=== PATIENT | male | born 1960 | race Caucasian/White ===

== ENCOUNTER 2021-09-07 08:00 | Outpatient (REF) | payer OTHER, SELFPAY ==
[2021-09-07 08:55] LABS: Anion Gap 14 (12-20); Carbon Dioxide 26 mmol/L (22-29); Chloride 94 mmol/L (96-108); Potassium 5.2 mmol/L (3.3-5.1); Sodium 129 mmol/L (135-145)
[2021-09-07 10:02] LABS: Carbamazepine Tegretol 10.4 mcg/mL (5.0-12.0)
== END 2021-09-07 08:01 | disposition home or self-care (01) ==
LOC: HO.LAB 08:00
PROVIDERS: Visit Provider Psychiatry & Neurology Neurology
DX: R56.9 Unspecified convulsions (principal); E87.1 Hypo-osmolality and hyponatremia
CPT/HCPCS: 36415; 80051; 80156

== ENCOUNTER 2022-08-19 09:09 | Outpatient (REF) | payer OTHER, SELFPAY ==
[2022-08-19 10:42] LABS: Anion Gap 17 (12-20); Carbon Dioxide 26 mmol/L (22-29); Chloride 93 mmol/L (96-108); Potassium 5.5 mmol/L (3.3-5.1); Sodium 130 mmol/L (135-145)
[2022-08-19 11:33] LABS: Carbamazepine Tegretol 11.9 mcg/mL (5.0-12.0)
== END 2022-08-19 09:10 | disposition home or self-care (01) ==
LOC: HO.LAB 09:09
PROVIDERS: Visit Provider Psychiatry & Neurology Neurology
DX: G40.909 Epilepsy, unspecified, not intractable, without status epilepticus (principal)
CPT/HCPCS: 36415; 80051; 80156

== ENCOUNTER 2025-05-24 08:45 | Outpatient (AMB) | payer OTHER, SELFPAY ==
--- NOTE | 2025-05-24 08:49 | A.OFFVIS_ITS ---
Intake Visit Reasons: 6 month sz Allergies No Known Allergies Allergy (Verified 05/24/25 09:00) Medication List - Last Reconciled 05/24/25 by Armida Armas CNP amlodipine 10 mg PO DAILY carbamazepine mg PO cyclobenzaprine 5 mg PO BEDTIME 30 days hydralazine 25 mg PO TID lisinopril 40 mg PO DAILY lorazepam 1 mg PO BEDTIME PRN tadalafil 20 mg PO DAILY PRN HPI Comments Details: He was doing okay. No seizures. No medication side effects. Neck pain and stiffness was okay. Using cyclobenzaprine infrequently as needed which helps. Sleep was okay. 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 Was having more neck pain and stiffness since fall during seizure in 2021, worse in morning. Tried Motrin and heat which helped some. No pain into shoulders or arms. No numbness or tingling. Mild occasional headaches. Last break through seizure on 02/23/2022 while washing face and thinking was stuck in bathroom with tongue biting. Had lot to drink (7 beers and some whiskey) the night before and did not get enough sleep. Was seen in ER and discharged. Had seizure on 02/23/2020, was in fog, admitted to [facility] for 4 days. Had black eye from hitting the night stand. Had not missed any medications, but was very tired and had not slept. Had seizure on 10/04/2012 after stress and not being able to sleep. It lasted 2 minutes and he had short postictal period. Had seizure 03/2006. Hx of seizure disorder, partial with secondary generalization. No aura. Hx of hyponatremia from CBZ. [facility] Medical History (Updated 05/24/25 @ 08:52 by Armida Armas CNP) Epilepsy Hypertension Seizures Review of Systems Const Denies chills, Denies daytime sleepiness, Denies difficulty sleeping, Denies fatigue, Denies fever(s), Denies frequent falls, Denies headache(s), Denies increased appetite, Denies poor appetite, Denies snoring, Denies weakness, Denies weight gain and Denies weight loss Eyes Denies loss of vision ENT Denies vertigo, Denies dizziness, Denies headache(s) and Reports neck pain Card Denies chest pain at rest, Denies chest pain with activity, Denies syncope, Denies leg edema, Denies palpitations, Denies dyspnea and Denies dyspnea on exertion Resp Denies cough, Denies dyspnea, Denies dyspnea on exertion and Denies snoring GI Denies abdominal pain, Denies constipation, Denies heartburn, Denies diarrhea and Denies nausea Denies urinary frequency, Denies urinary incontinence and Denies urinary urgency Musc Denies abnormal gait, Denies back pain, Denies myalgias, Denies arthralgias, Reports neck pain, Denies numbness and Denies tingling Neuro Denies abnormal gait, Denies vertigo, Denies dizziness, Denies syncope, Denies frequent falls, Denies headache(s), Denies lack of coordination, Denies loss of vision, Denies memory loss, Denies numbness, Denies Other visual disturbances, Denies restless legs, Denies seizure-like activity, Denies tingling, Denies paresthesias, Denies tremor(s) and Denies weakness Psych Denies anxiety, Denies depression, Denies auditory hallucinations, Denies memory loss and Denies visual hallucinations Endo Denies fatigue and Denies palpitations Physical Exam Const Other: General Appearance:? normal, in no acute distress. Heart:? S1, S2 normal, no murmurs. Lungs:? clear anteriorly and posteriorly. Musculoskeletal:? normal. Extremities:? no edema. Psych:? alert, oriented, cognitive function intact, cooperative with exam. Neuro Other: Abnormal Neurological Findings:?5-/5 L finger spread and thumb opposition Mental Status: alert and oriented X 3. Normal attention, orientation, memory, and affect. Cranial Nerves: Pupils are equal, round, and reactive to light. External ocular muscles are intact. Visual jara are full, no ptosis. Face is symmetrical, no facial weakness or droop. Facial sensations are normal. Tongue protrudes in midline. Palate elevates symmetrically. Shoulder shrugging is normal Motor Examination: As above, otherwise normal muscle tone, bulk and strength. No atrophy or fasciculations. No drift of the extended upper extremities. DTR 2+. Plantars are flexor. Sensory Exam: Normal light touch, temperature, pinprick, vibration, and joint- position sensations. Rhomberg sign is absent. Coordination: No ataxia. No titubation. [id number]-[id number], txzy-eris-oiat test, and rapid alternating movements were normal. Gait Exam: Within normal limits. Cerebellar Signs: [id number] and [id number] is normal. No dysdiadochokinesia. Extrapyramidal System: No tremor, rigidity with normal facial expressions. No bradykinesia. No bradyphrenia. Normal arm swing and posture. No propulsion or retropulsion. Speech: Normal. No dysphasia or dysarthria. Results Reviewed Results Reviewed: 10/26/2024 Cervical XR: Straightening of usual cervical lordosis probably due to muscle spasm, multilevel bony and discs degenerative changes Assessment & Plan Assessment & Plan (1) Epilepsy: Code(s): G40.909 - Epilepsy, unspecified, not intractable, without status epilepticus Category: Medical Qualifiers: Epilepsy type: unspecified Intractability: not intractable Status epilepticus: without status epilepticus Qualified Code(s): G40.909 - Epilepsy, unspecified, not intractable, without status epilepticus Plan: Continue Tegretol 200mg 2 tablets twice a day and 1.5 tablets midday Continue lorazepam 1mg 1 tablet at bedtime as needed Continue tadalafil 20mg 1 tablet as needed once a day #4 for 30 days Hx of hyponatremia from carbamazepine. Electrolytes and carbamazepine level ordered. (2) Cervical disc disease: Code(s): M50.90 - Cervical disc disorder, unspecified, unspecified cervical region Category: Medical Plan: Continue cyclobenzaprine 5mg 1 tablet at bedtime as needed for muscle spasm/pain Orders: Orders Electrolytes Today G40.909 - Epilepsy, unspecified, not intractable, without status epilepticus Carbamazepine Tegretol Today G40.909 - Epilepsy, unspecified, not intractable, without status epilepticus Medications: New carbamazepine (Tegretol) 200 mg orally 2 tablets twice a day and 1.5 tabs midday; 500 tabs 3RF 90 days Coding Level of Care Code Est Pt Level 4 (09418) Diagnoses Nonintractable epilepsy without status epilepticus, unspecified epilepsy type G40.909 Epilepsy type: unspecified Intractability: not intractable Status epilepticus: without status epilepticus Cervical disc disease M50.90
--- OUTSIDE RECORDS SUMMARY | 2025-05-24 09:01 | XMS_ITS | Clinical Summary ---
Author Organization [facility] Address [address] [place] [address] Phone Care Team Providers Care Traffic Line Painter Name Role Phone Thor Medrano MD Primary Care Provider [phone] Allergies No known active allergies Medications diclofenac (VOLTAREN) 1 % topical gel Apply 4 g topically 4 (four) times a day if needed. Active clonazePAM (KlonoPIN) 1 mg tablet Take 1 tablet (1 mg total) by mouth 1 (one) time each day. FOR 30 DAYS 3 Active tadalafiL (CIALIS) 20 mg tablet 1 Active LORazepam (ATIVAN) 1 mg tablet Take 0.5 tablets (0.5 mg total) by mouth at bedtime. Active carBAMazepine (TEGretol) 200 mg tablet Take 2 tablets (400 mg total) by mouth 3 (three) times a day. 400- AM; 300 afternoon; 400 bed Active cyclobenzaprine (FLEXERIL) 5 mg tablet Take 1 tablet (5 mg total) by mouth 3 (three) times a day if needed. 4 Active amLODIPine (NORVASC) 10 mg tabletIndications :Primary hypertension Take 1 tablet (10 mg total) by mouth 1 (one) time each day. 90 each 1 5 Active lisinopril (PRINIVIL,ZESTRIL ) 40 mg tabletIndications :Primary hypertension Take 1 tablet (40 mg total) by mouth 1 (one) time each day. 90 tablet 1 5 Active hydrALAZINE (APRESOLINE) 25 mg tabletIndications :Primary hypertension Take 1 tablet (25 mg total) by mouth 3 (three) times a day. 270 each 1 5 Active Active Problems Problem Noted Date Diagnosed Date Ascending aorta dilatation (CMS/HCC V24) 025 Overview (03/26/2025): 04/06--4 cm Colon cancer screening 01/05/2025 Overview (01/05/2025): 12/07--- Obstructive sleep apnea 06/19/2021 Overview (09/08/2024): [facility] Home sleep study; done 06/11/2021; weight 57 pounds; BMI 38. AHI 6; AI 1; AHI 5; 3 unclassified apneas; 5 obstructive apneas; 40 hypopneas; average oxygen saturation 94%; oxygen jae 81% without nocturnal hypoxemia noted. Obesity (BMI 30-39.9) 09/21/2020 Thoracic aortic aneurysm without rupture (CMS/HC C V24) 12/25/2018 Overview (03/26/2025): ECHO 12/29- CTA 01/29- [id number] - f/u CTA 6 months 08/[id number] CTA never done, letter sent. 04/06 Echo 4 cm Hyponatremia 01/28/2018 Overview (09/08/2024): 01/28- 125- improved to 130 which is his baseline without salt restricting diet. Continue to monitor Abnormal EKG 01/27/2018 Overview (09/08/2024): 01/28- echo ordered Elevated blood sugar 01/27/2018 Dysplastic nevus 09/02/2015 Overview (09/08/2024): Dysplastic nevus 08/27 chest (moderate to severe atypia) Erectile dysfunction 02/03/2014 HTN (hypertension) 08/03/2013 Diverticulitis of colon without hemorrhage 03/05 Overview (09/08/2024): Incidental finding at colonoscopy 03/05/2013. [place]ulsions [place] [place], [facility] V28) 6 Overview (09/08/2024): hosp 03/01, ?etoh withdrawal. Resolved Problems Problem Noted Date Diagnosed Date Resolved Date HLD (hyperlipidemia) 10/10/2015 025 Iritis 11/11/2012 01/05/2025 Allergic rhinitis 05/24/2009 01/05/2025 Encounters Date Type Department Care Team Description 04/11/2025 8:30 AM EDT Office Visit Adult Medicine [facility] [address] [place] [id number] Kathy Singh NP Primary hypertension (Primary Dx); Obstructive sleep apnea 03/23/2025 2:00 PM EDT Ancillary Procedure [facility] [address] [facility] [address] [place] [address] Aneurysm of ascending aorta without rupture ([facility] V24) 02/25/2025 1:15 PM EDT Office Visit Adult Medicine [facility] [address] [place] [phone] Annie Otto MD Post-nasal drip (Primary Dx); Seasonal allergies from Last 3 Months Immunizations Name Administration Dates Next Due Influenza Quadravalent, MDCK , 0.5ml, preservative free (Flucelvax) 6mo and older 09/20/2021 Tdap Tetanus diptheria acell ular pertussis (Boostrix; Adacel) 7yo and older 07/29/2024,05/24/2009 Surgical History Surgery Date Site/Laterality Comments WISDOM TOOTH EXTRACTION PROCEDURE: HISTORICAL WISDOM TEETH EXTRACTION; COMMENT: no problems with anesthesia or bleeding COLONOSCOPY 2012 PROCEDURE: ND COLONOSCOPY FLX DX W/COLLJ SPEC WHEN PFRMD; COMMENT: minimal diverticulosis MOLE REMOVAL PROCEDURE: HISTORICAL MOLE (REMOVAL OF) Medical History Medical History Date Comments Other convulsions 09/19/2006 DX:Other convu lsions Diverticulosis of colon (wit hout mention of hemorrhage) 03/05/2013 DX:Diverticulosis of colon ( without mention of hemorrhage); COMMENT: Incidental finding at colonoscopy 03/05/2013. Convulsions, unspecified con vulsion type ([facility] V24, [facility] V28) 09/19/2006 DX:Convulsions, unspec ified convulsion type ([facility]); COMMENT: hosp 03/01, ?etoh withdrawal. HTN (hypertension) 08/03/2013 DX:HTN (hyper tension) Class 2 severe obesity with body mass index (BMI) of 35 to 39.9 with serious comorbidity (CMS/[facility] V24, [facility] V28) 09/21/2020 DX:Class 2 carlos eduardo re obesity with body mass index (BMI) of 35 to 39.9 with serious comorbidity ([facility]) Family History Medical History Relation Name Comments Coronary artery disease Father Hypertension Father Macular degeneration Father and mot her Coronary artery disease Grandparent 1 Hypertension Grandparent 2 Other: unknown Maternal Grandfather Other: old age Maternal Grandmother d at 103 Heart attack Paternal Grandfather at age 60 while shoveling Other: Alzheimer's Paternal Grandmother d ied at 99 Lung cancer Uncle maternal Relation Name Status Comments Father Alive Grandparent 1 Grandparent 2 Maternal Grandfather Maternal Grandmother Mother Alive Paternal Grandfather Paternal Grandmother Uncle Social History Tobacco Use Types Packs/Day Years Used Date Smoking Tobacco: Former Cigarettes Q uit: 12/16/2007 Smokeless Tobacco: Never Tobacco Cessation:Counseling Given: Not Answered Alcohol Use Standard Drinks/Week Comments Yes 12 (1 standard drink = 0.6 oz pu re alcohol) Interpersonal Safety Answer Date Record ed Physical Abuse 11/18/2024 Verbal Abuse 11/18/2024 Sex and Gender Information Value Date Recorded Sex Assigned at Male 11/18/2024 2:11 PM EST Legal Sex Male 3:51 PM EST Gender Identity Male 11/18/2024 2:11 PM EST Sexual Orientation Choose not to disclose 2024 2:11 PM EST Obstetrics History Last Filed Vital Signs Vital Sign Reading Time Taken Comments Blood Pressure 120/60 04/11/2025 8:53 AM EDT Pulse 73 04/11/2025 8:37 AM EDT Temperature 36.7 C (98.1 F) 04/11/2025 8:37 AM EDT Respiratory Rate 16 02/25/2025 1:06 PM EDT Oxygen Saturation 99% 11/18/2024 3:30 PM EST Inhaled Oxygen Concentration - - Weight 123 kg (272 lb) 04/11/2025 8:37 AM EDT Height 180.3 cm (5' 11 ) 04/11/2025 8:37 AM EDT Body Mass Index 37.94 04/11/2025 8:37 AM EDT Plan of Treatment Upcoming Encounters Date Type Department Care Team (Late st Contact Info) Description 10/10/2025 9:00 AM EST Office Visit Adult Medicine - [place] [address] [place] [address] Kathy Singh, BONY [address] [place] [address] Health Maintenance Due Date Last Done Comments Zoster Vaccines (1 of 2) 1981 Pneumococcal Vaccine: 50+ Years (1 of 1 - PCV) 2012 HIV Screening 09/21/2022 Social Influencers of Health Screening 09/21/2022 COVID-19 Vaccine (4 - 2023-2 5 season) 2024 09/25/2021, 11/29/2020, 10/27/2020 Influenza Vaccine (#1) 2025 09/20/2021 Hypertension/CHF/CAD Annual BMP Blood Test 07/29/2025 07/29/2024, 07/29/2024 Cholesterol Screening (Lipid Panel) 07/29/2029 07/29/2024, 07/29/2024 DTaP,Tdap,and Td Vaccines (3 - Td or Tdap) 07/29/2034 07/29/2024, 05/24/2009 Colorectal Cancer Screening: Colonoscopy 11/18/2034 11/18/2024, 03/05/2013, 03/05/2013 RSV Immunization Adult Patients (1 - 1-dose 75+ series) 2037 Hepatitis C Screening Completed 06/06/2015 Depression Screening Completed 04/04/2025 HIB Vaccines Aged Out No longer eligi ble based on patient's age to complete this topic HPV Vaccines Aged Out No longer eligi ble based on patient's age to complete this topic Hepatitis A Vaccines Aged Out No long er eligible based on patient's age to complete this topic Hepatitis B Vaccines Aged Out No long er eligible based on patient's age to complete this topic IPV Vaccines Aged Out No longer eligi ble based on patient's age to complete this topic MMR Vaccines Aged Out No longer eligi ble based on patient's age to complete this topic Meningococcal ACWY Vaccine Aged Out N o longer eligible based on patient's age to complete this topic Meningococcal B Vaccine Aged Out No l onger eligible based on patient's age to complete this topic RSV Immunization Patients Under 20 months Aged Out No longer eligible b ased on patient's age to complete this topic Varicella Vaccines Aged Out No longer eligible based on patient's age to complete this topic Procedures Procedure Name Priority Date/Time Associated Diagnosis Comments TRANSTHORACIC ECHOCARDIOGRAM (TTE) COMPLETE Routine 03/23/2025 2:39 PM EDT Aneurysm of ascending aorta without rupture (CMS/HCC V24) COLONOSCOPY Routine 11/18/2024 3:09 PM EST Colon cancer screening ANNUAL BMP BLOOD TEST Routine 07/29/2024 LIPID PANEL Routine 07/29/2024 HEPATITIS C SCREENING Routine 06/06/2015 from Last 3 Months or Most Recently Relevant to Health Maintenance Results * (ABNORMAL) TRANSTHORACIC ECHOCARDIOGRAM (TTE) COMPLETE (03/23/2025 2:39 PM EDT) Left Atrium Minor [place] 6.6 cm CV PACS Left Atrium Major [place] 6.4 cm CV PACS LA Area Sys (A2C) 29 cm2 CV PACS LA Area Sys (A4C) 25 cm2 CV PACS LA Volume (BP) 91 mL CV PACS LA Size 4.4 cm CV PACS RA Area 19.5 cm2 CV PACS RA 2D Volume 51 mL CV PACS AV Mean Gradient 4 mmHg CV PACS AV Mean Gradient 4 mmHg CV PACS Ao VTI 30.4 cm CV PACS AV Peak El 1.4 m/s CV PACS AV Peak Gradient 7 mmHg CV PACS AV Area Continuity Equation 3.2 cm2 CV PACS AV Area Peak Velocity 3.4 cm2 CV PACS Aortic Sinus Valsalva 4.7 cm CV PACS Ascending Aorta 4.0 cm CV PACS IVC Proximal 1.7 cm CV PACS IVSD 1.3(A) 0.6 - 1.0 cm CV PACS LVIDD 5.7 4.2 - 5.8 cm CV PACS LVIDS 3.8 2.5 - 4.0 cm CV PACS LVOT Diameter 2.2 cm CV PACS LVOT Mean El 0.8 m/s CV PACS LVOT Mean Grad 3 mmHg CV PACS LVOT Mean Grad 3 mmHg CV PACS LVOT Peak VTI 25.3 cm CV PACS LVOT Peak El 1.2 m/s CV PACS LVOT Peak Gradient 6 mmHg CV PACS LVPWD 1.3(A) 0.6 - 1.0 cm CV PACS MV E' Tissue Velocity Lateral 10 cm/s CV PACS MV E' Tissue Velocity Septal 7 cm/s CV PACS LVOT Area 3.8 cm2 CV PACS LVOT Stroke Volume 96 mL CV PACS MV Deceleration Keith 4.6 m/s2 CV PACS E Wave Deceleration Time 199 119 - 242 ms CV PACS MV PHT 59 ms CV PACS MV Peak A El 0.87 m/s CV PACS MV Peak E El 0.90 m/s CV PACS MV Mean Gradient 1 mmHg CV PACS MV Mean Gradient 1 mmHg CV PACS MV Mean Gradient 1 mmHg CV PACS MV Mean Gradient 1 mmHg CV PACS MV VTI 31.1 cm CV PACS Mitral Valve Max Velocity 1.0 m/s CV PACS MV Peak Gradient 4 mmHg CV PACS MV Area PHT 3.7 cm2 CV PACS MV Area Continuity Equation 3.1 cm2 CV PACS PV Acceleration Time 141 ms CV PACS PV Mean Gradient 1 mmHg CV PACS PV VTI 16.5 cm CV PACS PV Peak Velocity 0.9 m/s CV PACS PV Peak Gradient 3 mmHg CV PACS RV Diastolic Basal Dimension 5.1(A) 2.5 - 4.1 cm CV PACS RV S' 12 cm/s CV PACS TAPSE 28 mm CV PACS E/E' Ratio Septal 13 CV PACS E/E' Ratio Averaged 11 CV PACS Relative Wall Thickness ratio 0.46 CV PACS LVOT:AV VTI Index 0.83 CV PACS FS 33 % CV PACS LV Mass 2D 322 g CV PACS MV VTI:LVOT VTI ratio 1.2 CV PACS LVOT flow 304 mL/s CV PACS AV Velocity Ratio 0.86 CV PACS E/A Ratio 1.0 CV PACS E/E' Ratio Lateral 9 CV PACS BSA 2.5 m2 CV PACS LA Volume Index (BP) 38 mL/m2 CV PACS LVIDD Index 2.37 cm/m2 CV PACS LVIDS Index 1.58 cm/m2 CV PACS LV Mass Index 2D 134(A) 50 - 102 g/m2 CV PACS LVOT Stroke Index 40 mL/m2 CV PACS LA Dimension Index 2D 1.8 cm/m2 CV PACS RA 2D Volume Index 21 18 - 32 mL/m2 CV PACS TIFFANIE Index (VTI) 1.31 cm2/m2 CV PACS TIFFANIE Index (Pk El) 1.41 cm2/m2 CV PACS Ascending Aorta Index 1.66 cm/m2 CV PACS Est. RA Pressure 3 mmHg CV PACS Anatomical Region Laterality Modality Ultrasound Narrative 03/25/2025 6:26 PM EDT Left ventricle cavity size is normal. Left ventricular systolic function is in the normal range with an ejection fraction of 60-65%. No regional LV wall motion abnormalities noted. Left ventricle mild concentric hypertrophy. Right ventricle cavity is mildly enlarged. Aortic valve leaflets are mildly thickened. The Sinus of Valsalva is dilated (4.7 cm). The ascending aorta is dilated (4.0 cm). Left Ventricle Left ventricle cavity size is normal. There is mild concentric hypertrophy. Systolic function is normal with an ejection fraction of 60-65%. There are no regional LV wall motion abnormalities. Right Ventricle Right ventricle cavity is mildly dilated. Left Atrium Left atrium cavity is mildly dilated. Right Atrium Right atrium cavity is normal. IVC/SVC Inferior vena cava structure is normal. RA pressures is estimated to be 3 mmHg (IVC diameter <21 mm and decreases >50% during inspiration). Mitral Valve The leaflets are mildly thickened. There is mild annular calcification. There is trace regurgitation. There is no evidence of mitral valve stenosis. Tricuspid Valve Tricuspid valve structure is normal. There is no significant regurgitation. Cannot assess RVSP. Aortic Valve The aortic valve is trileaflet. The leaflets are mildly thickened. There is no regurgitation or stenosis. Pulmonic Valve The pulmonic valve was not well visualized. There is no pulmonic valve regurgitation. Ascending Aorta The Sinus of Valsalva is(4.7 cm). The ascending aorta is (4.0 cm). Pericardium Pericardium appears normal. There is no pericardial effusion. Study Details Overall the study quality was adequate. us C Lisandro Medrano MD CV ECHO PROCEDURES Final Resul t * COLONOSCOPY Anesthesia - MAC; [facility] ENDOSCOPY (11/18/2024 3:09 PM EST) Anatomical Region Laterality Modality Other 11/18/2024 2:59 PM EST Impressions 11/18/2024 3:10 PM EST - The entire examined colon is normal on direct and retroflexion views. - No specimens collected. Recommendation: - Repeat colonoscopy in 10 years for screening purposes. Narrative 11/18/2024 3:10 PM EST [facility] GI Patient Name: You Gustafson Procedure Date: 11/18/2024 2:59 PM Date of : 1960 Age: 64 Room: ROOM 14 Gender: Male Note Status: Finalized Attending MD: Derek Jalloh MD, Procedure Date No Time: 11/18/2024 Procedure: Colonoscopy Indications: Screening for colorectal malignant neoplasm Providers: Derek Jalloh MD Referring MD: Preston Sal MD Medicines: Propofol per Anesthesia Complications: No immediate complications. Estimated Blood Loss: Estimated blood loss: none. Procedure: Pre-Anesthesia Assessment: - ASA Grade Assessment: II - A patient with mild systemic disease. After I obtained informed consent, the scope was passed under direct vision. Throughout the procedure, the patient's blood pressure, pulse, and oxygen saturations were monitored continuously.The Colonoscope was introduced through the anus and advanced to the cecum, identified by appendiceal orifice and ileocecal valve. The quality of the bowel preparation was good. Findings: The perianal and digital rectal examinations were normal. The entire examined colon appeared normal on direct and retroflexion views. Procedure Code(s): --- Professional --- G0121, Colorectal cancer screening; colonoscopy on individual not meeting criteria for high risk Diagnosis Code(s): --- Professional --- Z12.11, Encounter for screening for malignant neoplasm of colon CPT copyright 2020 [employer]. All rights reserved. The codes documented in this report are preliminary and upon weigher operator review may be revised to meet current compliance requirements. Derek Jalloh MD 11/18/2024 3:10:43 PM This report has been signed electronically.Derek Jalloh MD Number of Addenda: 0 Note Initiated On: 11/18/2024 2:59 PM Scope In: Scope Out: Endoscopy Department at [facility] - [address] [place] [id number] Procedure Note Derek Jalloh MD - 11/18/2024 [facility] GI Patient Name: You Gustafson Procedure Date: 11/18/2024 2:59 PM Date of : 1960 Age: 64 Room: ROOM 14 Gender: Male Note Status: Finalized Attending MD: Derek Jalloh MD, Procedure Date No Time: 11/18/2024 Procedure: Colonoscopy Indications: Screening for colorectal malignant neoplasm Providers: Derek Jalloh MD Referring MD: Preston Sal MD Medicines: Propofol per Anesthesia Complications: No immediate complications. Estimated Blood Loss: Estimated blood loss: none. Procedure: Pre-Anesthesia Assessment: - ASA Grade Assessment: II - A patient with mild systemic disease. After I obtained informed consent, the scope was passed under direct vision. Throughout theprocedure, the patient's blood pressure, pulse, and oxygen saturations were monitored continuously.The Colonoscope was introduced through the anus and advanced to the cecum, identified by appendiceal orifice and ileocecal valve. The quality of thebowel preparation was good. Findings: The perianal and digital rectal examinations were normal. The entire examined colon appeared normal on direct and retroflexion views. Procedure Code(s): --- Professional --- G0121, Colorectal cancer screening; colonoscopy on individual not meeting criteria for high risk Diagnosis Code(s): --- Professional --- Z12.11, Encounter for screening for malignantneoplasm of colon CPT copyright 202 [employer]. All rights reserved. The codes documented in this report are preliminary and upon weigher operator reviewmay be revised to meet current compliance requirements. Derek Jalloh MD 11/18/2024 3:10:43 PM This report has been signed electronically.Derek Jalloh MD Number of Addenda: 0 Note Initiated On: 11/18/2024 2:59 PM Scope In: Scope Out: Endoscopy Department at [facility] - [address] [place] [phone] IMPRESSION: - The entire examined colon is normal on direct and retroflexion views. - No specimens collected. Recommendation: - Repeat colonoscopy in 10 years for screening purposes. Preston Sal MD GI~PROCEDURE ORDERABLES Final Re sult * Annual BMP Blood Test (07/29/2024) [facility] Annual BMP Blood Test Abstracted Result [facility] Final Result * (ABNORMAL) Lipid panel (07/29/2024) [facility] LDL/HDL Ratio 3 0 - 4 Triglycerides 124 0 - 150 mg/dL Cholesterol 279(A) 0 - 200 mg/dL HDL 113 >=40 mg/dL LDL Cholesterol 142(A) 0 - 100 mg/dL Blood Venous blood specimen / Unknown Result [facility] Rafiq Jackman MD LAB BLOOD ORDERABLES Corrina l Result * Hepatitis C Screening (06/06/2015) [facility] Hepatitis C Screening Abstracted Result [facility] Rafiq Jackman MD HEALTH MAINTENANCE Final Result from Last 3 Months or Most Recently Relevant to Health Maintenance Insurance [facility] Care Teams Traffic Line Painter Relationship Specialty Start Date End Date Thor Medrano MD [address] [place] [id number] PCP - General Internal Medicine 09/21/20
== END 2025-05-24 09:11 | disposition home or self-care (01) ==
LOC: HO.HSM 08:45
PROVIDERS: PCP Pediatrics; Referring Provider Pediatrics; Visit Provider Registered Nurse
DX: G40.909 Epilepsy, unspecified, not intractable, without status epilepticus (principal); M50.90 Cervical disc disorder, unspecified, unspecified cervical region
CPT/HCPCS: 99214